=== PATIENT | male | born 1980 | race Caucasian/White ===

== ENCOUNTER → 2020-12-12 | Outpatient (CLI) | payer BC, OTHER ==
[~2020-12-12] MED LIST: NORCO 10-325 T1 EACH PO; VIBRAMYCIN 100100 MG PO; ZITHROMAX250 MG PO
[2020-12-12 12:25] LABS: HEMOGLOBIN 14.3 gm/dl (14.0-17.5); RED BLOOD COUNT 4.71 M/UL (4.20-5.50); WHITE BLOOD COUNT 9.3 K/UL (4.5-11.0)
[2020-12-12 12:43] LABS: BUN/CREATININE RATIO 13 (0-10)
== END ==
LOC: LAB 11:52
PROVIDERS: Dermatology
DX: L40.0 Psoriasis vulgaris (principal); L40.1 Generalized pustular psoriasis
CPT/HCPCS: 36415; 80053; 85027

== ENCOUNTER 2021-02-28 04:07 | Emergency (ER) | payer BC, OTHER ==
[~2021-02-28 04:07] MED LIST changes: -VIBRAMYCIN 100100 MG PO; -ZITHROMAX250 MG PO
[2021-02-28 07:46] LABS: HEMOGLOBIN 14.8 gm/dl (14.0-17.5); RED BLOOD COUNT 4.84 M/UL (4.20-5.50); WHITE BLOOD COUNT 17.1 K/UL (4.5-11.0)
[2021-02-28 08:17] LABS: BUN/CREATININE RATIO 13 (0-10)
[2021-02-28] MEDS ORDERED: VIBRAMYCIN 100100 MG PO (12:11)
[2021-02-28] MEDS ORDERED: ZITHROMAX250 MG PO (12:11)
== END 2021-02-28 12:23 | disposition home or self-care (01) ==
LOC: ER1 04:07
PROVIDERS: Emergency Medicine
DX: J18.9 Pneumonia, unspecified organism (principal); I10 Essential (primary) hypertension
CPT/HCPCS: 71045; 73030; 73060; 73080; 73090; 80053; 82550; 82553; 83690; 84484; 85025; 85379; 85652; 86140; 93005; 99285; Q9967

== ENCOUNTER → 2021-03-19 | Outpatient (CLI) | payer BC, OTHER ==
[~2021-03-19] MED LIST changes: +VIBRAMYCIN 100100 MG PO; +ZITHROMAX250 MG PO
[2021-03-19 13:39] LABS: HEMOGLOBIN 13.5 gm/dl (14.0-17.5); RED BLOOD COUNT 4.28 M/UL (4.20-5.50); WHITE BLOOD COUNT 7.2 K/UL (4.5-11.0)
[2021-03-19 14:14] LABS: BUN/CREATININE RATIO 12 (0-10)
== END ==
LOC: LAB 13:05
PROVIDERS: Dermatology
DX: L40.0 Psoriasis vulgaris (principal); L40.1 Generalized pustular psoriasis
CPT/HCPCS: 36415; 80053; 83735; 85025